=== PATIENT | male | born 1995 | race African-American/Black ===

== ENCOUNTER 2019-11-21 11:19 | Emergency (ER) | payer OTHER ==
[~2019-11-21] VITALS: Ht 198.1 cm; Wt 104.6 kg
[2019-11-21] MEDS ORDERED: ACETAMINOPHEN 500 MG TAB PO ONE (12:30)
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
[2019-11-21 13:41] VITALS: BP 158/85
== END 2019-11-21 13:43 | disposition home or self-care (01) ==
LOC: M ED 11:19
DX: S16.1XXA Strain of muscle, fascia and tendon at neck level, initial encounter (principal); S13.4XXA Sprain of ligaments of cervical spine, initial encounter; S09.90XA Unspecified injury of head, initial encounter; V43.52XA Car driver injured in collision with other type car in traffic accident, initial encounter; Y92.9 Unspecified place or not applicable; Y93.9 Activity, unspecified; Y99.9 Unspecified external cause status